=== PATIENT | male | born 1990 | race Caucasian/White ===

== ENCOUNTER 2022-07-05 12:20 | Outpatient (REF) | payer OTHER, MEDICAID, SELFPAY ==
[2022-07-05 14:23] LABS: Hematocrit 47.8 % (42.0-52.0); Hemoglobin 16.1 g/dl (14.0-18.0); Mean Corpuscular HGB Conc 33.7 g/dl (31.0-36.0); Mean Corpuscular Hemoglobin 30.5 pg (27.0-33.0); Mean Corpuscular Volume 90.5 fL (80.0-98.0); Mean Platelet Volume 9.8 fL (9.4-12.4); Platelet Count 315 X10*3/uL (160-400); Red Blood Count 5.28 X10*6/uL (4.60-5.80); Red Cell Distribution Width 11.6 % (11.0-16.0); White Blood Count 9.1 X10*3/uL (4.8-10.8)
[2022-07-05 14:39] LABS: Alanine Aminotransferase 51 U/L (0-40); Albumin Level 4.7 g/dL (3.5-5.0); Alkaline Phosphatase 117 U/L (39-117); Anion Gap 13 (12-20); Aspartate Amino Transferase 32 U/L (5-37); Bilirubin Total 1.4 mg/dL (0.0-1.0); Blood Urea Nitrogen 11 mg/dL (9-16); Calcium 9.8 mg/dL (8.4-10.2); Carbon Dioxide 28 mmol/L (22-29); Chloride 101 mmol/L (96-108); Cholesterol 161 mg/dL; Estimated Glomerular Filt Rate > 60; Glucose Fasting 81 mg/dL (60-99); HDL Cholesterol 33 mg/dL; LDL Cholesterol Calculated 109 mg/dl; Sodium 137 mmol/L (135-145); Total Protein 7.6 g/dL (6.5-8.0); Triglycerides 95 mg/dL
[2022-07-05 14:42] LABS: Amphetamine Screen Urine Not Detected (Not Detect); Barbiturates, Urine Not Detected (Not Detect); Benzodiazepines Screen Urine Not Detected (Not Detect); Cannabinoid Screen Urine Not Detected (Not Detect); Cocaine Screen Urine Not Detected (Not Detect); Fentanyl, urine Not Detected (Not Detect); Opiate Screen Urine Not Detected (Not Detect); Phencyclidine Screen Urine Not Detected (Not Detect)
[2022-07-05 14:54] LABS: TSH reflex Free T4 0.66 uIU/mL (0.32-4.0); Vitamin D 25-OH Total 10.1 ng/mL (>30)
== END 2022-07-05 12:21 | disposition home or self-care (01) ==
LOC: HO.WFDLDS 12:20
PROVIDERS: Visit Provider Nurse Practitioner Family
DX: Z00.00 Encounter for general adult medical examination without abnormal findings (principal)
CPT/HCPCS: 80053; 80061; 80307; 82306; 84443; 85027

== ENCOUNTER 2023-02-01 18:38 | Emergency (ER) | payer OTHER, SELFPAY ==
--- NOTE | ~2023-02-01 | XR_ITS ---
EXAMINATION: CHEST 2 VIEWS CLINICAL INFORMATION: cough. COMPARISON: No recent pertinent prior studies are available for comparison. TECHNIQUE: PA and lateral views of the chest obtained. FINDINGS: The lungs are well expanded. No focal infiltrate, effusion, edema, or pneumothorax. Cardiac and mediastinal silhouettes are within normal limits for technique. No acute bony abnormality seen XR/XR chest 2V IMPRESSION: No evidence of acute disease
[2023-02-01 19:12] VITALS: BP 128/79; PULSE 84; RESP 16; TEMP 36.6; O2SAT 96; BMI 30.2
--- NOTE | 2023-02-01 19:12 | ED_ITS ---
HPI - General Adult General Chief complaint: General Medical Stated complaint: covid symptoms? Time Seen by Provider: 02/01/23 20:57 Source: patient Mode of arrival: ambulatory Limitations: no limitations History of Present Illness HPI narrative: 32 yo male with PMH of ADHD, anxiety and depression here with c/o feeling cough, body aches, subj fevers and chills since Monday. Works in a warehouse, tolerating PO feels nauseated at times. No travel or exposures. No covid tests at home, no known sick contacts complaint: viral illness Onset (ago): day(s) (4) Radiation: non-radiation Severity: mild Quality: aching Pain Consistency: intermittent Relieving factors: none Exacerbating factors: none Associated symptoms: cough, fever/chills, loss of appetite, malaise and nausea/vomiting Treatments prior to arrival: none Related Data Home Medications Medication Instructions Recorded Confirmed fluoxetine 10 mg capsule 40 mg PO DAILY 07/05/22 Previous Rx's Medication Instructions Recorded nicotine (polacrilex) 2 mg gum 2 mg buccal Q2H 28 days #120 ea 08/18/22 (Nicorette) ondansetron 4 mg disintegrating 4 mg PO Q8H PRN nausea and 02/01/23 tablet vomiting #20 tabs Allergies Allergy/AdvReac Type Severity Reaction Status Date / Time penicillin V Allergy Unknown Rash Hives Verified 02/01/23 19:14 Grass Mix Pollens Allergen Allergy Unknown RAsh hives Uncoded 02/01/23 19:14 Ext Review of Systems Review of Systems: Constitutional : pos Fever, pos Chills ENT/Mouth : No Hoarseness, No sore throat, No Rhinorrhea Eyes: No Redness, No Discharge, No Vision Changes Cardiovascular : No Chest Pain, no SOB, positive Dyspnea on Exertion, No Edema Respiratory : positive Cough, No Sputum, no Wheezing, Gastrointestinal : No Nausea, No Vomiting, No Diarrhea, No abdominal Pain Genitourinary : No Dysuria, No Hematuria Musculoskeletal : No joint pain, pos Myalgias Skin : No rash Neuro : No Weakness, No Numbness, No Headache Psych : No anxiety, depression All other systems reviewed and are negative PMFSH Past Medical History Attestation statement: The following information was validated with the patient. Medical History ADHD (attention deficit hyperactivity disorder) Anxiety and depression Bipolar 1 disorder Social History Social History Patient Tobacco Use Status: Current everyday Tobacco user Tobacco use type: Cigarette Advance Directives: No Advance Directives Information Provided: No Cognitive needs: No Hearing needs: No Vision needs: No Physical Exam ED Vital Signs: Vital Signs - 24 hr 02/01/23 19:12 Temperature 98 F Pulse Rate 84 Respiratory Rate 16 Blood Pressure 128/79 Pulse Oximetry 96 Oxygen Delivery Method Room Air BMI result Body Mass Index 30.2 Appearance: Alert. Oriented X3. No acute distress. Eyes: Pupils equal, round and reactive to light. ENT: Pharynx normal. Neck: Normal inspection. Neck supple. CVS: Normal heart rate and rhythm. Pulses normal. Respiratory: No respiratory distress. Breath sounds normal. Abdomen: Soft and non-tender. Skin: Skin warm and dry. Normal skin color. Normal skin turgor. Extremities: No lower extremity edema. No calf ttp Neuro: Oriented X 3. No motor deficit. No sensory deficit. Course Course Course Narrative: RME- 32 year old male presents for evaluation of cough, congestion, body aches and subjective fevers. Plan for viral swabs Medical Decision Making Medical Decision Making [facility] Narrative: 32 yo male with ADHD, anxiety, depression here with c/o not feeling well and cough, chills, body aches since Monday he is not toxic, stable VS denies travel, rash, tick bites - will obtain CXR and viral panel. No hypoxia and tolerating PO Differential Diagnosis Differential Diagnoses: The differential diagnosis associated with the presentation includes viral syndrome, pneumonia Admission/Observation Consideration of admission/observation: Escalation of care including admission/observation considered not toxic no hypoxia tolerating PO Lab Data [facility] Lab Attestation statement: I reviewed the patient's lab results. Labs: Lab Results 02/01/23 Range/Units 19:37 COVID-19 (BRENT) Negative (Negative) COVID-19 Clin Com See Note Influenza Type A (MIGUEL) Negative (Negative) Influenza Type B (MIGUEL) Negative (Negative) Influenza A & B Note See Note Independent Interpretation I performed an independent interpretation of an: Plain X-Ray Radiology Impression Discussion of test interpretation with radiology: I have reviewed the radiologist's reading. Independent Historian Clinical information obtained from an independent historian. History obtained from or confirmed by: Other (zofran) Discharge Plan Discharge Clinical Impression: Acute viral syndrome Patient Disposition: Home, Self-Care Instructions: Viral Syndrome (ED) Additional Instructions: drink plenty of fluids. take tylenol and motrin for pain or symptoms. return for worsening symptoms of shortness of breath, pain, confusion, inability to eat or drink negative for covid and flu no pneumonia on chest xray Prescriptions: New ondansetron 4 mg tablet,disintegrating 4 mg PO Q8H PRN (Reason: nausea and vomiting) Qty: 20 0RF No Action nicotine (polacrilex) [Nicorette] 2 mg gum 2 mg buccal Q2H 28 Days Qty: 120 3RF fluoxetine 10 mg capsule 40 mg PO DAILY Stand Alone Forms: Work/School Release
[2023-02-01 20:08] LABS: COVID-19 Test Negative (Negative); IDNOW Serial# 08D9AD1C; IDNOW Serial# BCCEAD1C
[2023-02-01 20:09] LABS: Influenza A Negative (Negative); Influenza B2 Negative (Negative)
== END 2023-02-01 22:38 | disposition home or self-care (01) ==
PROVIDERS: Physician Assistant; Emergency Provider Emergency Medicine
DX: B34.9 Viral infection, unspecified (principal); R05.9 Cough, unspecified; Z20.822 Contact with and (suspected) exposure to COVID-19; Z20.828 Contact with and (suspected) exposure to other viral communicable diseases
CPT/HCPCS: 71046; 87502; 87635; 99283; 99284

== ENCOUNTER 2023-03-22 14:10 | Outpatient (AMB) | payer OTHER, SELFPAY ==
--- NOTE | 2023-03-22 14:12 | MHC.OFFWIV ---
Intake Vital Signs 03/22/23 14:16 Height 5 ft 6 in Weight 190 lb BMI 30.7 BP 130/76 Blood Pressure Location Lt brachial Position Sitting Pulse 97 Pulse Source Pulse Oximeter Temp 96.3 F L Temp Source Temporal Artery Scan Pulse Oximetry (%) 97 Oxygen Delivery Method Room Air Intake Visit Reasons: EP, sore throat, cough, congestion (masked) Intake Note: Pt is here c/o sore throat, cough and chest congestion yesterday on 03/21/23. Pt states he called out of work but wasn't able to be seen in [place]. Pt is requesting a letter for yesterday and today to return back to work tomorrow. Patient Tobacco Use Status: Current everyday Tobacco user Allergies penicillin V Allergy (Unknown, Verified 02/01/23 19:14) Rash Hives Grass Mix Pollens Allergen Ext Allergy (Unknown, Uncoded 02/01/23 19:14) RAsh hives HPI HPI Comments History of Present Illness Details 22-year-old male that presents cough congestion sore throat x1 day [facility] Medical History ADHD (attention deficit hyperactivity disorder) Anxiety and depression Bipolar 1 disorder Social History Patient Tobacco Use Status: Current everyday Tobacco user Tobacco use type: Cigarette Cognitive needs: No Hearing needs: No Vision needs: No Review of Systems ENT Reports sore throat Resp Reports chest congestion and Reports cough Physical Exam Vital Signs: Last Vital Signs Temp 96.3 F L 03/22/23 14:16 Pulse 97 03/22/23 14:16 BP 130/76 03/22/23 14:16 Pulse Ox 97 03/22/23 14:16 Oxygen Delivery Method Room Air 03/22/23 14:16 BMI result Body Mass Index 30.7 Const General: cooperative, healthy appearing, no acute distress and alert Orientation/consciousness: patient oriented x3 Limitations: no limitations HEENT Other: mild erythema in the posterior pharynx you will midline no trismus Head: Yes normal to inspection Ears: hearing grossly normal bilaterally General nose exam: Normal external nose present Resp Effort & Inspection: normal respiratory effort and able to speak in complete sentences Cardio Rate: regular rate Skin General skin exam: no rashes or lesions noted Neuro General: patient oriented x3 Extrem General: Yes normal to inspection Assessment & Plan Assessment & Plan (1) URI (upper respiratory infection): Code(s): J06.9 - Acute upper respiratory infection, unspecified Qualifiers: URI type: unspecified viral URI Qualified Code(s): J06.9 - Acute upper respiratory infection, unspecified Plan: likely viral URI recommend continued symptomatic treatment Discharge instructions, follow up and treatment are discussed with patient in my usual fashion. Alternatives in treatment are also discussed. The patient will return for worsening symptoms or as needed. Advised that any labs/imaging ordered will be followed up on and contact made if further treatment needed. Counseled that patient's condition may require further evaluation and/or treatment. Symptoms of concern for worsening disorder discussed in detail in my customary manner. Patient does verbalize understanding of the plan, there are no apparent barriers to communication. The patient is given the opportunity to ask questions and have them answered to his/her satisfaction Coding Level of Care Code New Pt Level 3 (38988) Diagnoses Viral upper respiratory tract infection J06.9 URI type: unspecified viral URI
[2023-03-22 14:16] VITALS: BP 130/76; PULSE 97; TEMP 35.7; O2SAT 97; BMI 30.7
== END 2023-03-22 14:37 | disposition home or self-care (01) ==
PROVIDERS: Visit Provider Physician Assistant
DX: J06.9 Acute upper respiratory infection, unspecified (principal)
CPT/HCPCS: 99203

== ENCOUNTER 2023-07-25 11:05 | Outpatient (AMB) | payer OTHER, SELFPAY ==
[2023-07-25 11:18] VITALS: BP 114/70; PULSE 106; RESP 13; TEMP 36.4; O2SAT 99; BMI 32.2
--- NOTE | 2023-07-25 11:18 | A.OFFPC_ITS ---
Vital Signs 07/25/23 11:18 Height 5 ft 6 in Weight 199 lb 8 oz BMI 32.2 BP 114/70 Blood Pressure Location Rt brachial Position Sitting Respiration 13 Pulse 106 H Pulse Source Pulse Oximeter Temp 97.6 F Temp Source Temporal Artery Scan Pulse Oximetry (%) 99 Oxygen Delivery Method Room Air Intake Visit Reasons: Migraine/Light Headed/Confusion Intake Note: Patient would like refill on fluoxetine. 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 Accompanied by: Self / Same As Patient Allergies penicillin V Allergy (Unknown, Verified 07/25/23 11:50) Rash Hives Grass Mix Pollens Allergen Ext Allergy (Unknown, Uncoded 07/25/23 11:50) RAsh hives Medication List - Last Reconciled 07/25/23 by Leon Gaines CNP fluoxetine 40 mg PO DAILY Tobacco use date assessed: 07/25/23 Dental Screening Dental Screen Date: 07/25/23 Did you have a dental visit in the last 12 months?: No Did you have a dental problem in the last 6 months where you did not have access to dental care?: No Was dental information given to patient?: Yes HPI HPI Comments History of Present Illness Details 32 y/o male presents with c/o intermitte nt generalized headache, lightheadedness, dizziness, and brain fog. His symptoms have been ongoing for the past 2-3 week; occur 1-2 times for 2-3 times weekly. His symptoms are more frequent at work. He states that he had a panic attack yesterday. He reports significant anxiety and depression symptoms. No SI/HI. He notes that he has not been taking fluoxetine since he ran out of it a month ago. He notes that his psychiatrist was prescribing his fluoxetine but he no longer has a psychiatrist; he is looking for a new one. He has not had symptoms today. He states that i feel so much better today. [facility] Medical History (Updated 07/25/23 @ 12:08 by Leon Gaines CNP) Anxiety and depression ADHD (attention deficit hyperactivity disorder) Bipolar 1 disorder Surgical History (Updated 07/25/23 @ 11:26 by Anay Warner MA) History of appendectomy Family History Other Substance abuse Social History Housing: Apartment Patient Tobacco Use Status: Current everyday Tobacco user Tobacco use type: Cigarette e-Cigarette/Vaping Use: Never Used service: No Current occupational status: employed Current occupation: [employer] Cognitive needs: No Hearing needs: No Vision needs: No Questionnaire PHQ-9 Over the last 2 weeks, how often have you been bothered by any of the following problems? 1. Little interest or pleasure in doing things: nearly every day 2. Feeling down, depressed, or hopeless: nearly every day 3. Trouble falling or staying asleep, or sleeping too much: nearly every day 4. Feeling tired or having little energy: nearly every day 5. Poor appetite or overeating: nearly every day 6. Feeling bad about yourself - or that you are a failure or have let yourself or your family down: nearly every day 7. Trouble concentrating on things, such as reading the newspaper or watching television: nearly every day 8. Moving or speaking so slowly that other people could have noticed. Or the opposite - being so fidgety or restless that you have been moving around a lot more than usual: nearly every day 9. Thoughts that you would be better off or of hurting yourself in some way: not at all Total score: 24 Depression Screening Interpretation: Positive Depression Screening Done: Yes Source: Developed by Drs. Florin Liu, Allison Rios, Allen Eason and colleagues, with an educational akin from [employer]. Thrive Questionnaire Date Thrive assessed: 07/05/22 NELY-7 AMB Questionnaire NELY-7 Date NELY - 7 assessed: 07/25/23 Feeling nervous, anxious, or on edge: 3 = Nearly every day Not being able to stop or control worryin = Nearly every day Worrying too much about different things: 0 = Not at all Trouble relaxin = Not at all Being so restless that it is hard to sit still: 3 = Nearly every day Becoming easily annoyed or irritable: 3 = Nearly every day Feeling afraid as if something awful might happen: 3 = Nearly every day Total NELY-7 score (0-4 normal; 5-9 mild; 10-14 moderate; 15-21 severe): 15 Source: Developed by Drs. Florin Liu, Allen Adan and colleagues, with an educational akin from [employer]. Review of Systems Const Details: Const Denies chills, Denies fatigue, Denies fever(s), Denies headache(s) and Denies weakness ENT Denies dizziness and Denies headache(s) Card Denies chest pain, Denies lightheadedness, Denies dyspnea and Denies other (Palpitations) Resp Denies cough, Denies dyspnea, Denies wheezing and Denies other ( shortness of breath) GI Denies abdominal pain, Denies melena, Denies hematochezia, Denies change in bowel habits, Denies dyspepsia and Denies nausea Denies hematuria and Denies dysuria Musc Denies abnormal gait, Denies myalgias, Denies arthralgias, Denies numbness and Denies tingling Skin/Breast Denies rash, Denies unusual bruising and Denies wounds Neuro Denies abnormal gait, Denies dizziness, Denies headache(s), Denies memory loss, Denies numbness, Denies Sensory deficit (Neuro), Denies tingling and Denies weakness Psych Reports anxiety, Reports depression, Denies memory loss Endo Denies cold intolerance, Denies fatigue, Denies heat intolerance, Denies polydipsia and Denies polyuria Aller/Immun Denies wheezing Physical exam (Primary Care) Vital Signs: Last Vital Signs Temp 97.6 F 07/25/23 11:18 Pulse 106 H 07/25/23 11:18 Resp 13 07/25/23 11:18 BP 114/70 07/25/23 11:18 Pulse Ox 99 07/25/23 11:18 Oxygen Delivery Method Room Air 07/25/23 11:18 BMI result Body Mass Index 32.2 Tobacco/Smoking Status: Tobacco use Status Tobacco use date assessed 07/25/23 07/25/23 11:27 Patient Tobacco Use Status Current everyday Tobacco 07/25/23 11:27 Tobacco use type Cigarette 07/25/23 11:27 e-Cigarette/Vaping Use Never Used 07/25/23 11:27 PHQ-9: PHQ-9 Score PHQ-9: Total score 07/25/23 12:06 Depression Screening Interpretation: Positive Thrive Assessment: Date of Thrive Assessment Date Thrive assessed 07/05/22 07/25/23 11:27 Const Other: General: no acute distress and well developed Nutritional Appearance: well nourished Orientation/consciousness: patient oriented x3 [facility] Head: Yes normocephalic and Yes atraumatic Eyes General: appearance normal, both eyes and all related structures Pupils: Equal, round and reactive pupils present EOM: EOMs intact bilaterally Resp Effort & Inspection: normal respiratory effort Auscultation: clear to auscultation bilaterally Cardio Rate: regular rate Rhythm: regular rhythm Heart sounds: S1 normal heart sound present, S2 normal heart sound present, no gallops, no murmurs and no rubs GI Palpation (GI): No Abdominal aortic bruit present, Soft to palpation, nontender, No hepatosplenomegaly present and No Rebound tenderness present Auscultation: normal bowel sounds General: Yes no CVA tenderness Back/Spine/Pelvis Back: no CVA tenderness Cervical Spine: cervical ROM normal and No Cervical spine tenderness Thoracic/Lumbar Spine: thoraco-lumbar ROM normal, No pain with thoraco-lumbar ROM, No thoracic spinal tenderness and No lumbar spinal tenderness Extrem General: Yes normal to inspection, No edema and No calf tenderness Skin General: warm and dry. Normal skin color. Normal skin turgor Neuro General: patient oriented x3, gait normal and no focal neuro deficit Cranial nerves: Yes Equal, round and reactive pupils present Cognition (Neuro): normal cognition Gait exam (Neuro): Normal gait present Sensory Exam: No Sensory deficit (Neuro) Psych Appearance: grossly normal Affect: normal affect Attitude: cooperative Thought process: Normal thought process present Assessment and Plan Assessment & Plan (1) Headache: Code(s): R51.9 - Headache, unspecified Plan: Reports intermittent generalized headache, lightheadedness, dizziness, and brain fog x 2-3 weeks He notes ?panic attack yesterday Reports significant anxiety and depression symptoms. No SI or HI He has not been taking fluoxetine since it ran out a month ago He no longer sees a psychiatrist and is currently looking for a new one Will check CBC and CMP for underlying cause Anxiety and depression may also be contributing refractors Take fluoxetine as prescribed May take Tylenol ibuprofen for pain or discomfort Follow-up with PCP in 2 weeks or return sooner with symptoms or concerns Verbalized understanding and agreed with treatment (2) Lightheadedness: Code(s): R42 - Dizziness and giddiness Plan: As above (3) Dizziness: Code(s): R42 - Dizziness and giddiness Plan: As above (4) Brain fog: Code(s): R41.89 - Other symptoms and signs involving cognitive functions and awareness Plan: As above (5) Anxiety and depression: Code(s): F41.9 - Anxiety disorder, unspecified; F32.A - Depression, unspecified Plan: PHQ-9 and NELY-7 scores revealed severe depression and anxiety respectively Fluoxetine 20 mg daily ordered. Take as prescribed Routine exercise encouraged Follow-up with PCP in 2 weeks or return sooner with worsening or new symptoms Verbalized understanding and agreed with treatment plan Orders: Orders Complete Blood Count Auto Diff Today R41.89 - Other symptoms and signs involving cognitive functions and awareness, R42 - Dizziness and giddiness, R51.9 - Headache, unspecified Comprehensive [place]. Panel Fast Today R41.89 - Other symptoms and signs involving cognitive functions and awareness, R42 - Dizziness and giddiness, R51.9 - Headache, unspecified Medications: New fluoxetine 20 mg PO DAILY 30 days 30 tabs 3RF Coding Level of Care Code Est Pt Level 4 (02203) Diagnoses Headache R51.9 Lightheadedness R42 Dizziness R42 Brain fog R41.89 Anxiety and depression F41.9; F32.A
== END 2023-07-25 12:15 | disposition home or self-care (01) ==
PROVIDERS: PCP Family Medicine; Visit Provider Nurse Practitioner Family
DX: R51.9 Headache, unspecified (principal); R42 Dizziness and giddiness; R41.89 Other symptoms and signs involving cognitive functions and awareness; F41.9 Anxiety disorder, unspecified; F32.A Depression, unspecified
CPT/HCPCS: 99214

== ENCOUNTER 2023-07-31 20:42 | Emergency (ER) | payer OTHER, SELFPAY ==
[2023-07-31 21:12] VITALS: BP 137/83; PULSE 100; RESP 14; TEMP 36.9; O2SAT 98; BMI 31.5
[2023-07-31 21:45] LABS: COVID-19 Test Positive (Negative); IDNOW Serial# 58CA691E
[2023-07-31 21:52] LABS: IDNOW Serial# 9DB6401D; Influenza A Negative (Negative); Influenza B2 Negative (Negative)
--- NOTE | 2023-08-01 00:45 | ED.URI ---
HPI - URI/Sore Throat General Chief Complaint: General Medical Stated Complaint: cough body aches Time Seen by Provider: 08/01/23 00:37 Source: patient Limitations: no limitations History of Present Illness HPI Narrative: Patient was healthy has not taken COVID vaccine complaining of body aches nasal congestion cough sore throat for last 2-3 days patient's step son was sick and he sneezed on him 2 days ago. No shortness of breath no chest pain or palpitation Related Data Previous Rx's Medication Instructions Recorded fluoxetine 20 mg tablet 20 mg PO DAILY 30 days #30 tabs 07/26/23 benzonatate 200 mg capsule 200 mg PO TID PRN cough #30 caps 08/01/23 ibuprofen 600 mg tablet 600 mg PO Q6H PRN fever or pain 08/01/23 #30 tabs Allergies Allergy/AdvReac Type Severity Reaction Status Date / Time penicillin V Allergy Unknown Rash Hives Verified 07/31/23 21:12 Grass Mix Pollens Allergen Allergy Unknown RAsh hives Uncoded 07/31/23 21:12 Ext Review of Systems Review of Systems: Yes all other systems are reviewed and are negative [facility] Past Medical History Medical History Anxiety and depression ADHD (attention deficit hyperactivity disorder) Bipolar 1 disorder Surgical History History of appendectomy Family History Family History Other Substance abuse Social History Social History Housing: Apartment Patient Tobacco Use Status: Current everyday Tobacco user Tobacco use type: Cigarette e-Cigarette/Vaping Use: Never Used Advance Directives: No Advance Directives Information Provided: No service: No Current occupational status: employed Current occupation: [employer]er Cognitive needs: No Hearing needs: No Vision needs: No Physical Exam Vital Signs: Vital Signs: Last Vital Signs Temp 98.4 F 07/31/23 21:12 Pulse 100 07/31/23 21:12 Resp 14 07/31/23 21:12 BP 137/83 07/31/23 21:12 Pulse Ox 98 07/31/23 21:12 O2 Del Method Room Air 07/31/23 21:12 BMI result Body Mass Index 31.5 Appearance: Alert. Oriented X3. No acute distress. Eyes: No pallor or icterus ENT: Pharynx normal. Oral Mucosa moist Neck: Normal inspection. Neck supple. CVS: Normal heart rate and rhythm. Pulses normal. Respiratory: No respiratory distress. Equal air entry bilateral, no wheezing/rales/rhonchi occasional dry cough Abdomen: Soft and nontender. Bowel sounds are present, no mass palpable, no CVA tenderness Neuro: Oriented X 3. Medications Administered Discontinued Medications Generic Name Dose Route Start Last Admin Trade Name Freq PRN Reason Stop Dose Admin Benzonatate 200 mg 08/01/23 00:45 08/01/23 01:04 Benzonatate 100 Mg Capsule PO 08/01/23 00:46 200 mg ONCE ONE Administration Ibuprofen 600 mg 08/01/23 00:45 08/01/23 01:04 Ibuprofen 600 Mg Tablet PO 08/01/23 00:46 600 mg ONCE ONE Administration Medical Decision Making Medical Decision Making [facility] Narrative: Patient with COVID symptoms test came positive for COVID discharge him on supportive treatment saturating 98% on room air no prior lung history Lab Data [facility] Lab Attestation statement: I reviewed the patient's lab results. Labs: Lab Results 07/31/23 Range/Units 21:30 COVID-19 (BRENT) Positive A (Negative) COVID-19 Clin Com See Note Influenza Type A (MIGUEL) Negative (Negative) Influenza Type B (MIGUEL) Negative (Negative) Influenza A & B Note See Note Discharge Plan Discharge Clinical Impression: COVID-19 Patient Disposition: Home, Self-Care Instructions: COVID-19 (Coronavirus Disease 2019) (ED) Additional Instructions: Social distancing as advised Tylenol/Motrin for body aches and fever Cough drops as prescribed Prescriptions: New benzonatate 200 mg capsule 200 mg PO TID PRN (Reason: cough) Qty: 30 0RF ibuprofen 600 mg tablet 600 mg PO Q6H PRN (Reason: fever or pain) Qty: 30 0RF No Action fluoxetine 20 mg tablet 20 mg PO DAILY 30 Days Qty: 30 3RF Stand Alone Forms: Work/School Release
[2023-08-01] MEDS: Benzonatate 100 MG CAPSULE 200 MG PO (01:04)
[2023-08-01] MEDS: Ibuprofen 600 MG TABLET PO (01:04)
== END 2023-08-01 01:15 | disposition home or self-care (01) ==
PROVIDERS: Emergency Provider Internal Medicine; PCP Family Medicine
DX: U07.1 COVID-19 (principal); R05.9 Cough, unspecified; M79.10 Myalgia, unspecified site
CPT/HCPCS: 87502; 87635; 99283

== ENCOUNTER 2023-08-08 15:25 | Outpatient (AMB) | payer OTHER, SELFPAY ==
[2023-08-08 15:31] VITALS: BP 122/76; PULSE 94; O2SAT 97; BMI 31.2
--- NOTE | 2023-08-08 15:31 | MHC.PC.OV ---
Vital Signs 08/08/23 15:31 Height 5 ft 6 in Weight 193 lb 3 oz BMI 31.2 BP 122/76 Blood Pressure Location Lt brachial Position Sitting Pulse 94 Pulse Source Pulse Oximeter Pulse Oximetry (%) 97 Oxygen Delivery Method Room Air Intake Visit Reasons: mood Intake Note: Patient is here to follow up on mood, and did not get blood work done due to Covid. Allergies penicillin V Allergy (Unknown, Verified 08/08/23 15:32) Rash Hives Grass Mix Pollens Allergen Ext Allergy (Unknown, Uncoded 08/08/23 15:32) RAsh hives Tobacco use date assessed: 08/08/23 Dental Screening Dental Screen Date: 08/08/23 HPI mood HPI Details 32 y/o male presents to f/u [facility]. He is on fluoxetine 20mg daily. He continues taking this daily but reports ongoing sensations of panic attacks. Also reports mood swings and decreased need for sleep. Pt notes recent covid infection. [facility] Medical History Anxiety and depression ADHD (attention deficit hyperactivity disorder) Bipolar 1 disorder Surgical History History of appendectomy Family History Other Substance abuse Social History Housing: Apartment Patient Tobacco Use Status: Current everyday Tobacco user Tobacco use type: Cigarette e-Cigarette/Vaping Use: Never Used service: No Current occupational status: employed Current occupation: [employer] Cognitive needs: No Hearing needs: No Vision needs: No Questionnaire PHQ-9 Over the last 2 weeks, how often have you been bothered by any of the following problems? 1. Little interest or pleasure in doing things: several days 2. Feeling down, depressed, or hopeless: nearly every day 3. Trouble falling or staying asleep, or sleeping too much: nearly every day 4. Feeling tired or having little energy: nearly every day 5. Poor appetite or overeating: several days 6. Feeling bad about yourself - or that you are a failure or have let yourself or your family down: not at all 7. Trouble concentrating on things, such as reading the newspaper or watching television: nearly every day 8. Moving or speaking so slowly that other people could have noticed. Or the opposite - being so fidgety or restless that you have been moving around a lot more than usual: nearly every day 9. Thoughts that you would be better off or of hurting yourself in some way: not at all Total score: 17 Depression Screening Interpretation: Positive Depression Screening Done: Yes Source: Developed by Drs. Florin Liu, Allison Rios, Allen Eason and colleagues, with an educational akin from [employer]. Thrive Questionnaire Date Thrive assessed: 07/05/22 NELY-7 AMB Questionnaire NELY-7 Date NELY - 7 assessed: 08/08/23 Feeling nervous, anxious, or on edge: 3 = Nearly every day Not being able to stop or control worryin = Several days Worrying too much about different things: 1 = Several days Trouble relaxin = Several days Being so restless that it is hard to sit still: 1 = Several days Becoming easily annoyed or irritable: 0 = Not at all Feeling afraid as if something awful might happen: 1 = Several days Total NELY-7 score (0-4 normal; 5-9 mild; 10-14 moderate; 15-21 severe): 8 Source: Developed by Drs. Florin Liu, Allison Rios, Allen Eason and colleagues, with an educational akin from [employer]. Review of Systems Const Denies chills, Denies fatigue, Denies fever(s), Denies headache(s) and Denies weakness ENT Denies dizziness and Denies headache(s) Card Denies dyspnea Resp Denies cough, Denies dyspnea, Denies wheezing and Denies other (shortness of breath) Musc Denies numbness and Denies tingling Neuro Denies dizziness, Denies headache(s), Denies numbness, Denies tingling and Denies weakness Psych Reports anxiety and Reports depression Endo Denies fatigue Aller/Immun Denies wheezing Physical exam (Primary Care) Vital Signs: Last Vital Signs Pulse 94 08/08/23 15:31 BP 122/76 08/08/23 15:31 Pulse Ox 97 08/08/23 15:31 Oxygen Delivery Method Room Air 08/08/23 15:31 BMI result Body Mass Index 31.2 Tobacco/Smoking Status: Tobacco use Status Tobacco use date assessed 08/08/23 08/08/23 15:34 Patient Tobacco Use Status Current everyday Tobacco 08/08/23 15:34 Tobacco use type Cigarette 08/08/23 15:34 e-Cigarette/Vaping Use Never Used 08/08/23 15:34 PHQ-9: PHQ-9 Score PHQ-9: Total score 17 08/08/23 15:40 Depression Screening Interpretation: Positive Thrive Assessment: Date of Thrive Assessment Date Thrive assessed 07/05/22 08/08/23 15:34 Const General: well developed; No acute distress Nutritional Appearance: well nourished Orientation/consciousness: patient oriented x3 HENMT Head: Yes normocephalic and Yes atraumatic Eyes General: appearance normal, both eyes and all related structures Pupils: Equal, round and reactive pupils present EOM: EOMs intact bilaterally Resp Effort & Inspection: normal respiratory effort Neuro General: patient oriented x3 and gait normal Cranial nerves: Yes Equal, round and reactive pupils present Psych Affect: normal affect Assessment and Plan Assessment & Plan (1) Anxiety and depression: Code(s): F41.9 - Anxiety disorder, unspecified; F32.A - Depression, unspecified Plan: Likely?bipolar?disorder?as?patient?has?decreased?need?for?sleep?at?times?and?wide?mood?swings. He?was?started?on?an?SSRI. Will?give?him?a?second-generation?antipsychotic;?Abilify?2?mg?daily.??He?may?be?able?to?wean?off?fluoxetine. Can?use?hydroxyzine?for?heightened?anxiety?episodes. (2) COVID-19: Code(s): U07.1 - COVID-19 Plan: Resolved Medications: New aripiprazole (Abilify) 2 mg PO BEDTIME 30 tabs 1RF 30 days hydroxyzine HCl 50 mg PO BEDTIME PRN 30 tabs 0RF anxiety 30 days Coding Level of Care Code Est Pt Level 3 (39090) Diagnoses Anxiety and depression F41.9; F32.A COVID-19 U07.1
== END 2023-08-08 16:11 | disposition home or self-care (01) ==
PROVIDERS: PCP Family Medicine; Visit Provider Family Medicine
DX: F41.9 Anxiety disorder, unspecified (principal); F32.A Depression, unspecified; U07.1 COVID-19
CPT/HCPCS: 99213